=== PATIENT | male | born 1985 | race Caucasian/White ===

== ENCOUNTER 2017-09-01 00:25 | Emergency (ER) | payer OTHER ==
--- NOTE | 2017-09-01 00:52 | ED Physician Documentation ---
PD HPI BACK PAIN - Stated complaint Stated Complaint: BACK PX - Chief complaint Chief Complaint: Back Pain - History obtained from History obtained from: Patient - History of Present Illness Timing - onset: How many weeks ago (2) Timing - duration: Weeks Timing - details: Gradual onset Pain level now: 6 Location: Right Quality: Pain, Spasm Associated symptoms: No: Fever, Weakness, Numbness, Incontinent of urine, Unable to urinate, Hematuria, Incontinent of stool Improves with: Rest Worsened by: Movement, Lifting Similar symptoms before: No diagnosis - Additional information Additional information: c/o two weeks of right low back pain which started while moving a couch. When he was moving a couch, he experienced a very mild discomfort in the right low back but did not think much of it. Over the following two days, however, he developed increasingly frequent spasms of right low back pain which radiates across the midline to the left, as well as up the right side of the back. These episodes are more frequent with exertion, particularly lifting or bending. this morning, he had another exacerbation when bending forward. Review of Systems Constitutional: reports: Reviewed and negative : denies: Unable to Void, Incontinent Musculoskeletal: reports: Back pain. denies: Neck pain Neurologic: denies: Focal weakness, Numbness PD PAST MEDICAL HISTORY - Past Medical History Past Medical History: No - Past Surgical History Past Surgical History: No - Present Medications Home Medications: Ambulatory Orders Medication Instructions Recorded Confirmed Cyclobenzaprine [Flexeril] 10 mg PO TID PRN #20 tablet 09/01/17 Hydrocodone/Acetaminophen 1 each PO Q6HR PRN #14 tablet 09/01/17 [Hydrocodon-Acetaminophen 5-325] - Allergies Allergies/Adverse Reactions: Allergies Allergy/AdvReac Type Severity Reaction Status Date / Time No Known Drug Allergies Allergy Verified 09/01/17 00:32 - Social History Does the pt smoke?: Yes Smoking Status: Current every day smoker Does the pt drink ETOH?: Yes Does the pt have substance abuse?: No - Immunizations Immunizations are current?: No - POLST Patient has POLST: No PD ED PE NORMAL - Vitals Vital signs reviewed: Yes - General General: Alert and oriented X 3, No acute distress, Well developed/nourished - Derm Derm: No rash - Extremities Extremities: No tenderness to palpate, Normal ROM s pain, No edema - Neuro Neuro: Alert and oriented X 3, No motor deficit, No sensory deficit, Other (2+/ 4 bilateral patellar DTR) Results - Vitals Vitals: Oxygen O2 Source Room air PD MEDICAL DECISION MAKING - ED course Complexity details: considered differential, d/w patient - Sepsis Event Vital Signs: Oxygen O2 Source Room air Departure - Departure Disposition: Home, Self Care Clinical Impression: Back pain Condition: Good Instructions: ED Neck Back Pain General Follow-Up: SHANNAN Rice [Provider Group] Prescriptions: Hydrocodone/Acetaminophen [Hydrocodon-Acetaminophen 5-325] 1 each PO Q6HR PRN # 14 tablet PRN Reason: Pain Cyclobenzaprine [Flexeril] 10 mg PO TID PRN #20 tablet PRN Reason: Spasms Forms: Activity restrictions Discharge Date/Time: 09/01/17 01:48
[2017-09-01] MEDS ORDERED: HYDROcod/ACETAM 5/325 MG TABLET PO STA (01:20)
[2017-09-01] MEDS ORDERED: CYCLOBENZAPRINE 10 MG TABLET PO STA (01:21)
[2017-09-01 01:49] VITALS: BP 130/82
== END 2017-09-01 01:48 | disposition home or self-care (01) ==
LOC: ED 00:25
DX: M54.5 Low back pain (principal); F17.200 Nicotine dependence, unspecified, uncomplicated
CPT/HCPCS: 99283; A9270

== ENCOUNTER 2019-09-02 15:46 | Outpatient (CLI) | payer OTHER ==
--- NOTE | 2019-09-02 18:47 | MRI Report ---
PROCEDURE: Lumbar Spine W/O INDICATIONS: LOW BACK PAIN TECHNIQUE: Noncontrast sagittal T1 spin echo and T2 fast echo, sagittal STIR, axial T1 and T2 fast spin echo thr ough the lumbar spine. In cases with scoliosis, additional coronal T2 fast spin echo may be performe d. COMPARISON: None. FINDINGS: Image quality: Excellent. Alignment and Curvature: There is normal bony alignment. Bone Marrow: Marrow is of normal overall signal. No acute vertebral body compression fractures. Spinal Cord: Conus medullaris terminates at the L1 level. Visualized cord demonstrates normal signa l and size. Paraspinous Soft Tissues: No paravertebral masses. T12-L1: Normal in appearance. L1-L2: Normal in appearance. L2-L3: Normal in appearance. L3-L4: The disc height is well-preserved. There is loss of disc signal seen. Moderate disc bulge is seen, with a central disc protrusion. There is an associated annular fissure seen posteriorly. Mild facet hypertrophy is seen. Moderate bilateral neural foraminal narrowing is seen. Moderate centr al canal narrowing is seen. L4-L5: The disc height is well-preserved. There is loss of disc signal seen. Moderate disc bulge is seen, with a moderate central disc extrusion, with inferior migration of the disc material. Mild fa cet hypertrophy is seen. There is at least moderate bilateral neuroforaminal narrowing seen, right w orse than left. Compression is seen upon the exiting nerve roots. Mild to moderate central canal maria c rowing is seen. L5-S1: The disc height and disc signal are relatively well-preserved. Mild to moderate facet hypert rophy is seen. Mild to moderate disc bulge is seen. Moderate bilateral neural foraminal narrowing is seen. Mild central canal narrowing is seen. IMPRESSION: Lower lumbar spine degenerative changes are seen, which are more prominent than would be expected for a patient of this age. Reviewed by: Mac Esquivel MD on 09/02/2019 5:46 PM [email or web address] Approved by: Mac Esquivel MD on 09/02/2019 5:46 PM [email or web address] Station ID: [id number]
== END 2019-09-02 15:47 | disposition home or self-care (01) ==
LOC: DI 15:46
PROVIDERS: ATTEND General Practice
DX: M51.26 Other intervertebral disc displacement, lumbar region (principal); M51.16 Intervertebral disc disorders with radiculopathy, lumbar region; M47.816 Spondylosis without myelopathy or radiculopathy, lumbar region; M47.817 Spondylosis without myelopathy or radiculopathy, lumbosacral region; M48.061 Spinal stenosis, lumbar region without neurogenic claudication; M48.07 Spinal stenosis, lumbosacral region
CPT/HCPCS: 72148